=== PATIENT | female | born 1940 | race Native Hawaiian/Other Pacific Islander ===

== ENCOUNTER 2016-09-11 13:36 | Observation (INO) | payer OTHER ==
[~2016-09-11] VITALS: Ht 167.6 cm; Wt 60.8 kg
[~2016-09-11 13:36] MED LIST: ACID REDUCER M150 MG PO; ASPIRIN81 MG PO; BAYER ASA325 M1 PO; CALCIUM600 M1 PO; CARV6.25 PO; ELIQUIS5 MG OR; ELIQUIS5 MG PO; FERROUS SULF325 M1 PO; FURO20TA67 PO; HYDR5TAB9 PO; LANOXIN 0.120.125 M1 PO; LISI5TAB10 PO; MAG OXIDE400 M2 PO; METOPROLOL25 M1 PO; NEXIUM40 M1 PO; PACERONE200 MG PO; PANT40TA PO; POTASSIUM CHLO20 ME1 PO; PRINIVIL5 MG PO; SIMV40TA57; TEMA30CA18 PO; TIZA4TAB5 PO; UNITHROID75 MCG PO; VENLAFAXINE75 M2 PO
[2016-09-11 14:56] LABS: PLATELET COUNT 363 K/uL (152-353)
[2016-09-11 14:57] VITALS: BP 138/71; TEMP 98.1; Ht 167.6 cm; Wt 60.8 kg
[2016-09-11 15:21] LABS: POTASSIUM 4.2 mmol/L (3.6-5.2); SODIUM 131 mmol/L (136-145)
[2016-09-11 15:24] LABS: PARTIAL THROMBOPLASTIN TIME 22.3 SECONDS (24.5-33.6)
[2016-09-11 16:00] VITALS: BP 138/71; TEMP 98.1
[2016-09-11 20:11] VITALS: BP 146/77; TEMP 97.6
[2016-09-12 00:43] VITALS: BP 123/68; TEMP 97.3
[2016-09-12 04:00] VITALS: BP 133/78; TEMP 97.6
[2016-09-12 05:18] LABS: PLATELET COUNT 352 K/uL (152-353)
[2016-09-12 05:37] LABS: POTASSIUM 3.7 mmol/L (3.6-5.2); SODIUM 133 mmol/L (136-145)
[2016-09-12 06:16] VITALS: BP 133/78; TEMP 97.6
[2016-09-12 08:00] VITALS: BP 127/78; TEMP 97.8
[2016-09-12 12:00] VITALS: BP 149/84; TEMP 98.6
--- NOTE | 2016-09-12 12:42 | NUR ---
1235-IV SITE D/C'D WITH TIP INTACT AND SITE CARE DONE. D/C INSTRUCTIONS GIVEN TO PT AND SHE VERBALIZES UNDERSTANDING. PT OUT VIA W/C WITH NAD.
== END 2016-09-12 12:35 | disposition home or self-care (01) ==
LOC: MED/SURG 13:36
PROVIDERS: ADMIT Family Medicine
PROC: 30233N1 Transfusion of Nonautologous Red Blood Cells into Peripheral Vein, Percutaneous Approach (ICD-10-PCS; principal; 2016-09-11)
DX: E86.0 Dehydration (principal); D64.89 Other specified anemias; N30.00 Acute cystitis without hematuria; R06.02 Shortness of breath
CPT/HCPCS: 36415; 36430; 80053; 82550; 83880; 84484; 85027; 85610; 85730; 86850; 86900; 86901; 86922; 93005; 94760; 96365; 96375; 99220; G0378; G0379; J1940; P9016

== ENCOUNTER 2016-09-29 11:55 | Outpatient (CLI) | payer OTHER ==
[~2016-09-29] VITALS: Ht 167.6 cm; Wt 61.2 kg
== END 2016-09-29 23:37 | disposition home or self-care (01) ==
LOC: INF 11:55
PROC: 30233N1 Transfusion of Nonautologous Red Blood Cells into Peripheral Vein, Percutaneous Approach (ICD-10-PCS; principal; 2016-09-29)
DX: D50.8 Other iron deficiency anemias (principal)
CPT/HCPCS: 36415; 36430; 85014; 85018; 86850; 86900; 86901; 86922; P9016

== ENCOUNTER 2016-10-21 10:02 | Outpatient (CLI) | payer OTHER | END 2016-10-21 11:02 | disposition home or self-care (01) | LOC: RAD 10:02 | DX: Z13.820 Encounter for screening for osteoporosis (principal); M85.89 Other specified disorders of bone density and structure, multiple sites ==

== ENCOUNTER 2017-01-04 10:36 | Observation (INO) | payer OTHER ==
[~2017-01-04] VITALS: Ht 167.6 cm; Wt 58.3 kg
[2017-01-04 11:26] LABS: PLATELET COUNT 346 K/uL (152-353)
[2017-01-04 11:40] VITALS: BP 97/58; TEMP 98; Ht 167.6 cm; Wt 58.3 kg
[2017-01-04] MEDS ORDERED: MULTI VITAMIN1 TAB PO (12:41)
[2017-01-04] MEDS ORDERED: DIGOX125 MCG PO (12:42)
[2017-01-04] MEDS ORDERED: FERRALET OR (12:43)
[2017-01-04] MEDS ORDERED: PRADAXA150 MG OR (14:42)
[2017-01-04 15:47] LABS: POTASSIUM 3.7 mmol/L (3.6-5.2)
[2017-01-04 16:03] VITALS: BP 129/69; TEMP 98.2
[2017-01-04 20:18] VITALS: BP 137/74; TEMP 98.4
[2017-01-05] VITALS: BP 175/89; TEMP 98.9
[2017-01-05 04:00] VITALS: BP 122/75; TEMP 97.5
[2017-01-05 08:00] VITALS: BP 109/67; TEMP 98.6
[2017-01-05 08:58] LABS: POTASSIUM 3.8 mmol/L (3.6-5.2); SODIUM 137 mmol/L (136-145)
[2017-01-05 09:18] LABS: PLATELET COUNT 279 K/uL (152-353)
[2017-01-05 11:14] VITALS: BP 142/85; TEMP 98.7
== END 2017-01-05 12:32 | disposition home or self-care (01) ==
LOC: MED/SURG 10:36
PROVIDERS: ADMIT Family Medicine
PROC: 30233N1 Transfusion of Nonautologous Red Blood Cells into Peripheral Vein, Percutaneous Approach (ICD-10-PCS; principal; 2017-01-04)
DX: D64.89 Other specified anemias (principal); K92.2 Gastrointestinal hemorrhage, unspecified; D50.8 Other iron deficiency anemias; R42 Dizziness and giddiness; N39.0 Urinary tract infection, site not specified; B96.20 Unspecified Escherichia coli [E. coli] as the cause of diseases classified elsewhere
CPT/HCPCS: 36415; 36430; 36591; 80053; 81000; 82550; 84484; 85014; 85018; 85027; 85610; 85730; 86850; 86900; 86901; 86922; 87077; 87086; 87088; 87186; 93005; 96365; 96367; 99220; G0378; G0379; J0696; P9016

== ENCOUNTER 2017-01-28 02:01 | Outpatient (CLI) | payer OTHER ==
[~2017-01-28 02:01] MED LIST changes: +DIGOX125 MCG PO; +FERRALET OR; +MULTI VITAMIN1 TAB PO; +PRADAXA150 MG OR
[2017-01-28] MEDS ORDERED: MAGNESIUM OXID400 M2 PO (06:16)
[2017-01-28] MEDS ORDERED: CALCIUM600 MG PO (06:17)
== END 2017-01-28 02:05 | disposition short-term general hospital (02) ==
LOC: AMB 02:01
DX: R53.1 Weakness (principal)
CPT/HCPCS: A0425; A0427

== ENCOUNTER 2017-05-14 09:55 | Outpatient (CLI) | payer OTHER ==
[~2017-05-14 09:55] MED LIST changes: +CALCIUM600 MG PO; +MAGNESIUM OXID400 M2 PO
[2017-05-14 10:21] LABS: PLATELET COUNT 374 K/uL (152-353)
[2017-05-14 11:20] LABS: POTASSIUM 3.9 mmol/L (3.6-5.2); SODIUM 135 mmol/L (136-145)
== END 2017-05-14 18:55 | disposition home or self-care (01) ==
LOC: LABW 09:55
PROVIDERS: Nuclear Medicine Nuclear Cardiology
DX: R07.89 Other chest pain (principal); R06.09 Other forms of dyspnea; I49.8 Other specified cardiac arrhythmias; I48.91 Unspecified atrial fibrillation; R42 Dizziness and giddiness; E78.4 Other hyperlipidemia
CPT/HCPCS: 80053; 80061; 83735; 84439; 84443; 84484; 85027; 85379

== ENCOUNTER 2017-05-24 10:35 | Outpatient (CLI) | payer OTHER ==
[2017-05-24 11:19] LABS: PLATELET COUNT 370 K/uL (152-353); POTASSIUM 4.1 mmol/L (3.6-5.2)
== END 2017-05-24 11:35 | disposition home or self-care (01) ==
LOC: LABW 10:35
PROVIDERS: Internal Medicine Hematology & Oncology
DX: D64.89 Other specified anemias (principal); E55.9 Vitamin D deficiency, unspecified; C50.819 Malignant neoplasm of overlapping sites of unspecified female breast
CPT/HCPCS: 36415; 80053; 82306; 82728; 83540; 85027; 85651

== ENCOUNTER 2017-10-01 09:51 | Outpatient (CLI) | payer OTHER | END 2017-10-01 21:50 | disposition home or self-care (01) | LOC: INF 09:51 | DX: M81.8 Other osteoporosis without current pathological fracture (principal) | CPT/HCPCS: 82310; 82565; 96365; 96366 ==

== ENCOUNTER 2017-10-06 10:03 | Outpatient (CLI) | payer OTHER | END 2017-10-07 04:39 | disposition home or self-care (01) | LOC: LABW 10:03 | PROVIDERS: Nuclear Medicine Nuclear Cardiology | DX: E78.4 Other hyperlipidemia (principal) | CPT/HCPCS: 36415; 80061; 84450; 84460 ==

== ENCOUNTER 2017-12-06 18:15 | Outpatient (CLI) | payer OTHER ==
[2017-12-06 20:25] LABS: POTASSIUM 3.9 mmol/L (3.6-5.2)
== END 2017-12-06 23:40 | disposition home or self-care (01) ==
LOC: LABW 18:15
PROVIDERS: Internal Medicine Hematology & Oncology
DX: D62 Acute posthemorrhagic anemia (principal)
CPT/HCPCS: 36415; 80053; 82306; 82607; 82728; 83540

== ENCOUNTER 2018-02-20 18:22 | Emergency (ER) | payer OTHER ==
[~2018-02-20] VITALS: Ht 167.6 cm; Wt 60.8 kg
[2018-02-20 19:16] LABS: PLATELET COUNT 205 K/uL (152-353)
[2018-02-20 19:31] LABS: POTASSIUM 3.6 mmol/L (3.6-5.2)
[2018-02-20 23:45] VITALS: BP 77/43; TEMP 98.6
== END 2018-02-20 23:45 | disposition short-term general hospital (02) ==
LOC: ED 18:22
DX: K92.2 Gastrointestinal hemorrhage, unspecified (principal); D64.89 Other specified anemias
CPT/HCPCS: 36415; 80053; 82150; 83690; 83735; 85027; 96360; 96374; 96375; 99285; J2405; Q9963

== ENCOUNTER 2018-03-08 09:09 | Outpatient (CLI) | payer OTHER | END 2018-03-08 23:11 | disposition home or self-care (01) | LOC: LABW 09:09 | PROVIDERS: Nuclear Medicine Nuclear Cardiology | DX: E78.4 Other hyperlipidemia (principal) | CPT/HCPCS: 36415; 80061; 84450; 84460 ==

== ENCOUNTER 2018-04-22 12:01 | Outpatient (CLI) | payer OTHER | END 2018-04-22 19:40 | disposition home or self-care (01) | LOC: INF 12:01 | PROC: 30233N1 Transfusion of Nonautologous Red Blood Cells into Peripheral Vein, Percutaneous Approach (ICD-10-PCS; principal; 2018-04-22) | DX: K92.2 Gastrointestinal hemorrhage, unspecified (principal) | CPT/HCPCS: 36415; 36430; 85014; 85018; 86850; 86900; 86901; 86922; P9016 ==

== ENCOUNTER 2018-05-05 10:51 | Observation (INO) | payer OTHER ==
[~2018-05-05] VITALS: Ht 167.6 cm; Wt 63.0 kg
[2018-05-05 12:51] LABS: PLATELET COUNT 270 K/uL (152-353)
[2018-05-05 13:02] LABS: POTASSIUM 4.4 mmol/L (3.6-5.2); SODIUM 138 mmol/L (136-145)
[2018-05-05 13:18] LABS: PARTIAL THROMBOPLASTIN TIME 21.4 SECONDS (24.5-33.6)
[2018-05-05 14:50] VITALS: BP 91/64; TEMP 98.3; Ht 167.6 cm; Wt 63.0 kg
== END 2018-05-05 17:14 | disposition short-term general hospital (02) ==
LOC: MED/SURG 10:51
PROVIDERS: ADMIT Family Medicine
PROC: 30233N1 Transfusion of Nonautologous Red Blood Cells into Peripheral Vein, Percutaneous Approach (ICD-10-PCS; principal; 2018-05-05)
DX: K92.2 Gastrointestinal hemorrhage, unspecified (principal); R73.9 Hyperglycemia, unspecified; D50.0 Iron deficiency anemia secondary to blood loss (chronic); E86.0 Dehydration
CPT/HCPCS: 36430; 74022; 80053; 82550; 83605; 83735; 83880; 84100; 84484; 85027; 85379; 85610; 85730; 86850; 86900; 86901; 86922; 87040; 93005; 99220; G0378; G0379; P9016

== ENCOUNTER 2018-05-05 17:22 | Outpatient (CLI) | payer OTHER | END 2018-05-05 19:20 | disposition short-term general hospital (02) | LOC: AMB 17:22 | DX: K92.2 Gastrointestinal hemorrhage, unspecified (principal); R73.9 Hyperglycemia, unspecified; D50.0 Iron deficiency anemia secondary to blood loss (chronic); E86.0 Dehydration | CPT/HCPCS: A0425; A0427 ==

== ENCOUNTER 2018-06-09 09:03 | Outpatient (CLI) | payer OTHER ==
[~2018-06-09] VITALS: Ht 170.2 cm; Wt 59.6 kg
== END 2018-06-09 20:32 | disposition home or self-care (01) ==
LOC: INF 09:03
DX: D50.9 Iron deficiency anemia, unspecified (principal)
CPT/HCPCS: 96365; J1439

== ENCOUNTER 2018-06-17 09:48 | Outpatient (CLI) | payer OTHER ==
[~2018-06-17] VITALS: Ht 162.6 cm; Wt 59.4 kg
== END 2018-06-17 19:21 | disposition home or self-care (01) ==
LOC: INF 09:48
DX: D50.9 Iron deficiency anemia, unspecified (principal)
CPT/HCPCS: 96365; J1439

== ENCOUNTER 2018-06-28 09:45 | Outpatient (CLI) | payer OTHER | END 2018-06-28 21:21 | disposition home or self-care (01) | LOC: INF 09:45 | PROC: 30233N1 Transfusion of Nonautologous Red Blood Cells into Peripheral Vein, Percutaneous Approach (ICD-10-PCS; principal; 2018-06-28) | DX: D64.89 Other specified anemias (principal) | CPT/HCPCS: 36430; 36591; 85014; 85018; 86850; 86900; 86901; 86922; P9016 ==

== ENCOUNTER 2018-07-12 10:04 | Outpatient (CLI) | payer OTHER | END 2018-07-12 22:15 | disposition home or self-care (01) | LOC: LABW 10:04 | PROVIDERS: Nuclear Medicine Nuclear Cardiology | DX: E78.49 Other hyperlipidemia (principal) | CPT/HCPCS: 36415; 80061; 84450; 84460 ==

== ENCOUNTER 2018-08-08 16:26 | Outpatient (CLI) | payer OTHER ==
[2018-08-08 16:52] LABS: PLATELET COUNT 259 K/uL (152-353)
== END 2018-08-08 20:38 | disposition home or self-care (01) ==
LOC: EDP 16:26
DX: D64.9 Anemia, unspecified (principal)
CPT/HCPCS: 36415; 82728; 83540; 85027; 85044

== ENCOUNTER 2018-10-05 10:21 | Outpatient (CLI) | payer OTHER ==
[~2018-10-05] VITALS: Ht 167.6 cm; Wt 62.6 kg
== END 2018-10-05 23:03 | disposition home or self-care (01) ==
LOC: INF 10:21
DX: M81.0 Age-related osteoporosis without current pathological fracture (principal); Z85.3 Personal history of malignant neoplasm of breast
CPT/HCPCS: 96361; 96365

== ENCOUNTER 2018-11-08 13:10 | Outpatient (CLI) | payer OTHER | END 2018-11-08 23:54 | disposition home or self-care (01) | LOC: LABW 13:10 | PROVIDERS: Nuclear Medicine Nuclear Cardiology | DX: E78.49 Other hyperlipidemia (principal) | CPT/HCPCS: 36415; 80061; 84450; 84460 ==

== ENCOUNTER 2019-01-16 10:12 | Outpatient (CLI) | payer OTHER ==
[2019-01-16 10:40] LABS: PLATELET COUNT 268 K/uL (152-353)
[2019-01-16 11:09] LABS: POTASSIUM 4.2 mmol/L (3.6-5.2)
== END 2019-01-16 22:45 | disposition home or self-care (01) ==
LOC: LABW 10:12
PROVIDERS: Internal Medicine Hematology & Oncology
DX: D50.8 Other iron deficiency anemias (principal); E53.8 Deficiency of other specified B group vitamins
CPT/HCPCS: 36415; 80053; 82607; 82728; 82746; 83540; 83550; 85027

== ENCOUNTER 2019-04-11 10:12 | Outpatient (CLI) | payer OTHER | END 2019-04-11 23:15 | disposition home or self-care (01) | LOC: LABW 10:12 | PROVIDERS: Nuclear Medicine Nuclear Cardiology | DX: E78.49 Other hyperlipidemia (principal) | CPT/HCPCS: 36415; 80061; 84450; 84460 ==

== ENCOUNTER 2019-05-22 10:28 | Outpatient (CLI) | payer OTHER ==
[~2019-05-22] VITALS: Ht 167.6 cm; Wt 63.5 kg
[2019-05-22 10:55] VITALS: BP 156/80; TEMP 97.6
== END 2019-05-23 04:00 | disposition home or self-care (01) ==
LOC: INF 10:28
DX: D50.8 Other iron deficiency anemias (principal)
CPT/HCPCS: 36415; 36430; 85014; 85018; 86850; 86900; 86901; 86922; P9016

== ENCOUNTER 2019-08-15 11:21 | Outpatient (CLI) | payer OTHER | END 2019-08-15 21:00 | disposition home or self-care (01) | LOC: LABW 11:21 | PROVIDERS: Nuclear Medicine Nuclear Cardiology | DX: E78.49 Other hyperlipidemia (principal) | CPT/HCPCS: 36415; 80061; 84450; 84460 ==

== ENCOUNTER 2019-09-13 13:12 | Outpatient (CLI) | payer OTHER | END 2019-09-13 16:00 | disposition home or self-care (01) | LOC: INF 13:12 → LABW 13:12 | DX: D64.9 Anemia, unspecified (principal) | CPT/HCPCS: 36415; 85014; 85018; 86922 ==

== ENCOUNTER 2019-09-15 09:31 | Outpatient (CLI) | payer OTHER ==
[2019-09-15 10:17] LABS: PLATELET COUNT 248 K/uL (152-353)
[2019-09-15 10:48] LABS: POTASSIUM 4.1 mmol/L (3.6-5.2)
== END 2019-09-15 16:00 | disposition home or self-care (01) ==
LOC: LABW 09:31
PROVIDERS: Nuclear Medicine Nuclear Cardiology
DX: R42 Dizziness and giddiness (principal); R53.83 Other fatigue; Z79.899 Other long term (current) drug therapy
CPT/HCPCS: 36415; 80053; 80061; 83036; 83735; 84439; 84443; 85027

== ENCOUNTER 2019-10-05 13:22 | Outpatient (CLI) | payer OTHER ==
[~2019-10-05] VITALS: Ht 165.1 cm; Wt 63.5 kg
[2019-10-05 13:40] VITALS: BP 115/72; TEMP 98.4
== END 2019-10-05 15:35 | disposition home or self-care (01) ==
LOC: INF 13:22
DX: M81.0 Age-related osteoporosis without current pathological fracture (principal)
CPT/HCPCS: 36591; 82310; 82565; 96361; 96365; J3489

== ENCOUNTER 2020-02-20 12:54 | Outpatient (CLI) | payer OTHER | END 2020-02-20 20:07 | disposition home or self-care (01) | LOC: CT 12:54 | DX: R51 Headache (principal); R42 Dizziness and giddiness ==

== ENCOUNTER 2020-05-22 13:28 | Outpatient (CLI) | payer OTHER | END 2020-05-22 20:16 | disposition home or self-care (01) | LOC: CT 13:28 | DX: R42 Dizziness and giddiness (principal); I73.9 Peripheral vascular disease, unspecified | CPT/HCPCS: 36415; 82565; 84520; Q9963 ==

== ENCOUNTER 2020-06-12 09:56 | Outpatient (CLI) | payer OTHER ==
[2020-06-12 10:19] LABS: PLATELET COUNT 215 K/uL (152-353)
[2020-06-12 10:29] LABS: POTASSIUM 3.7 mmol/L (3.6-5.2)
== END 2020-06-12 22:55 | disposition home or self-care (01) ==
LOC: LABW 09:56
PROVIDERS: Specialist
DX: R42 Dizziness and giddiness (principal); E53.8 Deficiency of other specified B group vitamins
CPT/HCPCS: 36415; 80053; 82607; 85027; 85651; 86225

== ENCOUNTER 2020-06-20 15:34 | Outpatient (CLI) | payer OTHER | END 2020-06-20 22:20 | disposition home or self-care (01) | LOC: RAD 15:34 | DX: R06.02 Shortness of breath (principal) ==

== ENCOUNTER 2020-08-13 11:05 | Outpatient (CLI) | payer OTHER | END 2020-08-13 19:57 | disposition home or self-care (01) | LOC: RESP 11:05 | PROVIDERS: ATTEND Specialist | DX: G57.93 Unspecified mononeuropathy of bilateral lower limbs (principal) ==

== ENCOUNTER 2020-09-17 10:03 | Outpatient (CLI) | payer OTHER | END 2020-09-17 21:45 | disposition home or self-care (01) | LOC: LABW 10:03 | PROVIDERS: ATTEND Nuclear Medicine Nuclear Cardiology | DX: E78.49 Other hyperlipidemia (principal) | CPT/HCPCS: 36415; 80061 ==

== ENCOUNTER 2020-10-07 09:27 | Outpatient (CLI) | payer OTHER ==
[~2020-10-07] VITALS: Ht 160 cm; Wt 64.4 kg
[2020-10-07 10:05] VITALS: BP 122/71; TEMP 98.5
== END 2020-10-07 12:25 | disposition home or self-care (01) ==
LOC: INF 09:27
PROVIDERS: ATTEND Family Medicine
DX: M81.0 Age-related osteoporosis without current pathological fracture (principal)
CPT/HCPCS: 36591; 82310; 82565; 96361; 96365; J3489

== ENCOUNTER 2021-02-25 09:25 | Outpatient (CLI) | payer OTHER ==
[2021-03-09 09:02] LABS: PLATELET COUNT 263 K/uL (152-353)
[2021-03-09 09:03] LABS: POTASSIUM 4.7 mmol/L (3.6-5.2)
== END 2021-02-25 12:00 | disposition home or self-care (01) ==
LOC: LABW 09:25
PROVIDERS: ATTEND Internal Medicine Cardiovascular Disease
DX: E78.49 Other hyperlipidemia (principal); Z79.899 Other long term (current) drug therapy
CPT/HCPCS: 36415; 80048; 80061; 80076; 85027

== ENCOUNTER 2021-08-10 09:48 | Emergency (ER) | payer OTHER ==
[~2021-08-10] VITALS: Ht 160 cm; Wt 64.4 kg
[2021-08-10 10:02] VITALS: BP 153/83; TEMP 97.9
== END 2021-08-10 12:00 | disposition home or self-care (01) ==
LOC: ED 09:48
PROC: 0HQLXZZ Repair Left Lower Leg Skin, External Approach (ICD-10-PCS; principal; 2021-08-10)
DX: S81.012A Laceration without foreign body, left knee, initial encounter (principal); W22.03XA Walked into furniture, initial encounter; Y92.89 Other specified places as the place of occurrence of the external cause
CPT/HCPCS: 99283; J7040

== ENCOUNTER 2021-10-08 08:41 | Outpatient (CLI) | payer OTHER ==
[~2021-10-08] VITALS: Ht 160 cm; Wt 51.4 kg
== END 2021-10-08 19:34 | disposition home or self-care (01) ==
LOC: INF 08:41
PROVIDERS: ATTEND Family Medicine
DX: M81.0 Age-related osteoporosis without current pathological fracture (principal)
CPT/HCPCS: 36415; 82310; 82565; 96365; J3489

== ENCOUNTER 2021-12-19 08:13 | Emergency (ER) | payer OTHER ==
[~2021-12-19] VITALS: Ht 160 cm; Wt 51.3 kg
[2021-12-19 08:17] VITALS: TEMP 97
[2021-12-19 08:45] LABS: PLATELET COUNT 265 K/uL (152-353)
[2021-12-19 08:52] LABS: POTASSIUM 4.3 mmol/L (3.6-5.2)
[2021-12-19 10:00] VITALS: BP 121/65
== END 2021-12-19 12:46 | disposition home or self-care (01) ==
LOC: ED 08:13
PROVIDERS: Hospitalist
DX: R10.84 Generalized abdominal pain (principal); D25.9 Leiomyoma of uterus, unspecified
CPT/HCPCS: 80053; 81000; 83605; 83690; 85027; 93005; 96360; 96374; 96375; 99284; J1885; J2405; Q9963

== ENCOUNTER 2021-12-25 09:04 | Outpatient (CLI) | payer OTHER | END 2021-12-25 19:09 | disposition home or self-care (01) | LOC: RESP 09:04 | PROVIDERS: ATTEND Family Medicine | DX: I10 Essential (primary) hypertension (principal) ==

== ENCOUNTER 2021-12-29 10:04 | Outpatient (CLI) | payer OTHER | END 2021-12-29 20:47 | disposition home or self-care (01) | LOC: US 10:04 | PROVIDERS: ATTEND Specialist | DX: R10.2 Pelvic and perineal pain (principal); N95.0 Postmenopausal bleeding; N85.8 Other specified noninflammatory disorders of uterus ==